=== PATIENT | male | born 1945 | race Caucasian/White ===

== ENCOUNTER 2016-11-03 19:43 | Emergency (ER) | payer MEDICARE, BC ==
[~2016-11-03] VITALS: Ht 190.5 cm; Wt 103.6 kg
[~2016-11-03 19:43] MED LIST: ADVIL200 MG PO; ALPRAZOLAM0.25 MG PO; ARTHROTEC 775 MG/TAB PO; ASPIRIN E.C. 8181 MG PO; FISH OIL1 IU PO; FLUTICASON0.05 MG/Ac NS; HA JOINT PO; HYALURONIC ACID; MULTIPLE VITAMI1 TAB PO; POMEGRANATE; RED RICE YEAST PO; REQUIP 0.5MG0.5 MG PO; VITAMIN C BUFF500 MG PO; ZANTAC PO; [UNRECOGNIZED DRUG - OTHER] PO; [UNRECOGNIZED DRUG - OTHER] PO
[2016-11-03] MEDS ORDERED: SYNTHROID 0.0.025 MG (20:13)
[2016-11-03 20:27] LABS: BASO % 0.2 % (0.0-2.0); EOS # 0.2 (0.0-0.7); EOS % 1.5 % (0-4.0); GRAN # 8.9 (1.4-6.5); GRAN % 83.4 % (42.2-75.2); HEMATOCRIT 42.4 % (42.0-52.0); HEMOGLOBIN 15.2 g/dl (13.5-18.0); LYMPH # 1.1 (1.2-3.4); LYMPH % 9.9 % (20.0-51.0); MEAN CELL VOLUME 93 fl (80.0-100.0); MEAN CORPUSCULAR HEMOGLOBIN 33 pg (27.0-31.0); MEAN CORPUSCULAR HGB CONC 36 g/dl (33.0-37.0); MEAN PLATELET VOLUME 10.4 fl (7.4-10.4); MONO # 0.5 (0.1-0.6); MONO % 4.7 % (1.7-9.3); PLATELET COUNT 159 K/mm3 (130-400); RED BLOOD COUNT 4.55 M/mm3 (4.20-5.60); REDCELL DISTRIBUTION WIDTH-CV 11.8 % (11.5-14.5); WHITE BLOOD COUNT 10.6 K/mm3 (4.8-10.8)
[2016-11-03 20:29] LABS: PH 7 (5-8); SQUAMOUS EPITHELIAL None Seen /hpf; URINE APPEARANCE Clear; URINE BACTERIA None Seen /hpf; URINE BILIRUBIN Negative (NEGATIVE); URINE BLOOD Negative (NEGATIVE); URINE COLOR Straw; URINE GLUCOSE Negative (NEGATIVE); URINE KETONE Negative (NEGATIVE); URINE RBC 0-2 /hpf; URINE UROBILINOGEN Negative (NEGATIVE); URINE WBC 0-2 /hpf
[2016-11-03 20:38] LABS: ADJUSTED CALCIUM 8.6 mg/dL (8.4-10.2); ALBUMIN 4.8 gm/dL (3.5-5.0); CALCIUM 9.2 mg/dL (8.4-10.2); CREATININE, serum 0.93 mg/dL (0.66-1.25); POTASSIUM 4.2 mmol/L (3.4-5.0); TOTAL PROTEIN 8.2 gm/dL (6.4-8.2)
[2016-11-03] MEDS ORDERED: DOXYCYCLINE 10100 MG PO ×2 (21:21→22:00)
[2016-11-03 21:44] VITALS: BP 147/85; TEMP 102.1
[2016-11-03 21:54] VITALS: PULSE 102
[2016-11-05 11:55] LABS: ROCKY MOUNTAIN SPOT FEVER-ABS <1:16 (<1:16)
[2016-11-09 17:09] LABS: EHRLICHIA CHAFFEENIS IGG <1:64 (()); EHRLICHIA CHAFFEENIS IGM <1:20 (())
== END 2016-11-03 21:55 | disposition home or self-care (01) ==
LOC: COL.ER 19:43
PROVIDERS: Emergency Medicine
DX: S30.860D Insect bite (nonvenomous) of lower back and pelvis, subsequent encounter (principal); R50.9 Fever, unspecified; E03.9 Hypothyroidism, unspecified; K21.9 Gastro-esophageal reflux disease without esophagitis; M19.90 Unspecified osteoarthritis, unspecified site; Z87.891 Personal history of nicotine dependence; Z79.82 Long term (current) use of aspirin; Z98.890 Other specified postprocedural states
CPT/HCPCS: J7030

== ENCOUNTER → 2016-12-29 | Outpatient (REF) ==
[~2016-12-29] MED LIST changes: +DOXYCYCLINE 10100 MG PO; +SYNTHROID 0.0.025 MG
[2016-12-29 11:50] LABS: PSA-TOTAL 2.7 ng/mL (0-4); THYROID STIMULATING HORMONE 2.13 uIU/mL (0.465-4.680)
== END ==
LOC: ZLAB.WCH 10:36
PROVIDERS: Family Medicine
DX: Z01.89 Encounter for other specified special examinations (principal)
CPT/HCPCS: G0103

== ENCOUNTER 2017-02-15 01:23 | Emergency (ER) | payer MEDICARE, BC ==
[~2017-02-15] VITALS: Ht 190.5 cm; Wt 106.4 kg
[2017-02-15 01:25] VITALS: BP 159/82; TEMP 98.1
[2017-02-15 02:27] VITALS: PULSE 67
== END 2017-02-15 02:28 | disposition home or self-care (01) ==
LOC: COL.ER 01:23
DX: M79.2 Neuralgia and neuritis, unspecified (principal); K21.9 Gastro-esophageal reflux disease without esophagitis; F41.9 Anxiety disorder, unspecified; Z79.82 Long term (current) use of aspirin

== ENCOUNTER → 2017-09-14 | Outpatient (CLI) | payer MEDICARE, BC | LOC: COL.PUL 10:30 | DX: R05 Cough (principal); R06.2 Wheezing; Z88.0 Allergy status to penicillin; Z88.2 Allergy status to sulfonamides ==

== ENCOUNTER → 2017-09-28 | Outpatient (CLI) | payer MEDICARE, BC | LOC: COL.PUL 09-22 08:00 | DX: R05 Cough (principal); R06.2 Wheezing; Z88.0 Allergy status to penicillin; Z88.2 Allergy status to sulfonamides ==

== ENCOUNTER → 2018-01-04 | Outpatient (REF) ==
[2018-01-04 15:15] LABS: THYROID STIMULATING HORMONE 3.11 uIU/mL (0.465-4.680)
[2018-01-04 15:56] LABS: PSA-TOTAL 1.87 ng/mL (0-4)
== END ==
LOC: ZLAB.WCH 14:21
PROVIDERS: Nurse Practitioner Family
DX: Z01.89 Encounter for other specified special examinations (principal)
CPT/HCPCS: G0103

== ENCOUNTER → 2018-04-24 | Outpatient (CLI) | payer MEDICARE, BC | LOC: COL.RAD 10:46 | DX: J98.6 Disorders of diaphragm (principal); R05 Cough ==

== ENCOUNTER → 2018-10-04 | Outpatient (CLI) | payer MEDICARE, BC | LOC: COL.CARD 11:14 | DX: R94.31 Abnormal electrocardiogram [ECG] [EKG] (principal); I49.9 Cardiac arrhythmia, unspecified ==

== ENCOUNTER 2019-02-27 17:41 | Inpatient (IN) | payer MEDICARE, BC ==
[~2019-02-27] VITALS: Ht 190.5 cm; Wt 105.9 kg
[~2019-02-27 17:41] MED LIST changes: -ALPRAZOLAM0.25 MG PO; -SYNTHROID 0.0.025 MG; +SYNTHROID0.075 MG/T PO; -VITAMIN C BUFF500 MG PO; +VITAMINC500CH PO; +XANAX 1MG1 MG PO
[2019-02-27 19:24] VITALS: BP 116/87; PULSE 129; TEMP 98.2
[2019-02-27 19:48] LABS: TROPONIN-I 0.031 ng/mL (0.000-0.035)
[2019-02-27] MEDS ORDERED: CLARITIN 1010 MG/TAB PO (20:35)
[2019-02-27] MEDS ORDERED: THEO-DUR 3300 MG/TAB PO (20:36)
[2019-02-27] MEDS ORDERED: TESTOSTERONE BOOSTER PO (20:39)
[2019-02-27] MEDS ORDERED: TRELEGY ELLIPT1 EACH IH (20:40)
[2019-02-27] MEDS ORDERED: VENTOLIN0.09 MG IH (20:41)
[2019-02-28] VITALS (449 sets, daily range): BP systolic 91–142; BP diastolic 60–98; PULSE 62–111; TEMP 97.7–98.3; O2SAT 79–100
--- NOTE | 2019-02-28 00:15 | NUR ---
Marge, security monitor, notified this RN of patient have more frequent pauses in heart rate. Patient is alert upon awakening, cardizem gtt is shut off at this time.
[2019-02-28 06:01] LABS: BASO % 0.4 % (0.0-2.0); EOS # 0.5 (0.0-0.7); GRAN # 3.3 (1.4-6.5); GRAN % 49.2 % (42.2-75.2); HEMATOCRIT 41.1 % (42.0-52.0); HEMOGLOBIN 14.2 g/dl (13.5-18.0); LYMPH # 2.4 (1.2-3.4); LYMPH % 35.3 % (20.0-51.0); MEAN CELL VOLUME 96 fl (80.0-100.0); MEAN CORPUSCULAR HEMOGLOBIN 33 pg (27.0-31.0); MEAN CORPUSCULAR HGB CONC 35 g/dl (33.0-37.0); MEAN PLATELET VOLUME 10.7 fl (7.4-10.4); MONO # 0.5 (0.1-0.6); PLATELET COUNT 166 K/mm3 (130-400)
[2019-02-28 06:18] LABS: ALBUMIN 3.4 gm/dL (3.5-5.0); BILIRUBIN,TOTAL 0.5 mg/dL (0.0-1.0); CREATININE, serum 1.07 (0.66-1.25); POTASSIUM 3.9 mmol/L (3.4-5.0)
--- NOTE | 2019-02-28 06:19 | NUR ---
Dr. Munguia rounding on patient at this time. Stated to go ahead and give him breakfast and will see how he is doing this afternoon. Putting in order for heart healty diet.
[2019-02-28 06:27] LABS: TROPONIN-I 0.019 ng/mL (0.000-0.035)
--- NOTE | 2019-02-28 07:00 | NUR ---
RECEIVED REPORT FROM LEAH BROWNE. PT SITTING UP IN BED REQUESTING A MENU TO ORDER SOME BREAKFAST. PT INFORMED THAT HE CAN HAVE BREAKFAST BUT TO HOLD OFF ON LUNCH PER THE POSSIBILITY OF CARDIOVERSION THIS AFTERNOON, PT VERBALIZED UNDERSTANDING. CALL LIGHT WITHIN REACH. CARDIZEM GTT AT 5MG/HR.
--- NOTE | 2019-02-28 08:35 | NUR ---
US TECH AT BEDSIDE TO PERFORM ECHO. PT COOPERATIVE WITH CARE.
--- NOTE | 2019-02-28 10:30 | NUR ---
DR GUPTA AT BEDSIDE FOR ASSESSMENT. DISCUSSED POC WITH DR GUPTA ABOUT POSSIBLE ROSAURA CARDIOVERSION THIS AFTERNOON. NO NEW ORDERS. AWAITING FO RCARDIOLOGY DECISION ABOUT POC AT THIS TIME.
--- NOTE | 2019-02-28 12:06 | NUR ---
First visit from the internet marketer. No needs right now.
--- NOTE | 2019-02-28 14:08 | NUR ---
SPOKE WITH DR LAMBERT ABOUT PT'S HR AND STATUS, ORDERS FOR CARDIOVERSION TOMRROW MORNING AT 0730. AND PT INFORMED ABOUT POC AND PT CAN EAT AT THIS TIME UP UNTIL MIDNIGHT TONIGHT, BOTH VERBALIZED UNDERSTANDING.
--- NOTE | 2019-02-28 14:10 | NUR ---
SPOKE WITH [facility] ABOUT DR LAMBERT REQUEST FOR ROSAURA CARDIOVERSION AT 0730 TOMORROW.
--- NOTE | 2019-02-28 14:25 | NUR ---
SPOKE WITH ANESTHESIA, CAN DO ABOUT 0800 TOMORROW MORNING FOR CARDIOVERSION. WILL NOTIFY [facility] AND [facility].
--- NOTE | 2019-02-28 14:52 | NUR ---
SPOKE WITH DR LAMBERT ABOUT SCHEDULING CONFLICTS FOR CARDIOVERSION. DR LAMBERT STATES TO GET ANESTHESIA FOR 0800 TOMORROW MORNING AND HE WILL HANDLE THE US PART. PT NOTIFIED.
--- NOTE | 2019-02-28 17:00 | NUR ---
EDUCATED PT AND ON HEART HEALTHY DIET AND LIMITING SALT INTAKE. BOTH VERBALIZED UNDERSTANDING.
[2019-03-01] VITALS (211 sets, daily range): BP systolic 109–126; BP diastolic 86–117; PULSE 58–130; TEMP 97.7–98.4; O2SAT 90–100
[2019-03-01 06:07] LABS: BASO % 0.4 % (0.0-2.0); EOS # 0.6 (0.0-0.7); EOS % 8.1 % (0-4.0); GRAN # 3.9 (1.4-6.5); GRAN % 56.6 % (42.2-75.2); HEMOGLOBIN 15.5 g/dl (13.5-18.0); LYMPH % 29.3 % (20.0-51.0); MEAN CELL VOLUME 95 fl (80.0-100.0); MEAN CORPUSCULAR HEMOGLOBIN 33 pg (27.0-31.0); MEAN CORPUSCULAR HGB CONC 34 g/dl (33.0-37.0); MEAN PLATELET VOLUME 11.1 fl (7.4-10.4); MONO # 0.4 (0.1-0.6); MONO % 5.5 % (1.7-9.3); PLATELET COUNT 160 K/mm3 (130-400); RED BLOOD COUNT 4.73 M/mm3 (4.20-5.60); REDCELL DISTRIBUTION WIDTH-CV 12.8 % (11.5-14.5)
[2019-03-01 06:17] LABS: CALCIUM 8.2 mg/dL (8.4-10.2); CREATININE, serum 1.02 (0.66-1.25)
--- NOTE | 2019-03-01 07:06 | NUR ---
Report recieved from LEAH Lindsey. Patient denies needs at this time 2L NC O2 in place. Care assumed.
--- NOTE | 2019-03-01 09:45 | NUR ---
Dr. Danielson rounds at this time. Orders as entered CPOE. Plan to DC home on O2. technical services coordinator to set up home O2.
--- NOTE | 2019-03-01 11:00 | NUR ---
Cardizem gtt discontinued per JESUS Munguia.
--- NOTE | 2019-03-01 11:13 | NUR ---
ROSAURA cardioversion completed between 1100 and 1113. Anesthesia attends and provides sedation, Dr. Munguia supervises, LEAH Nieves for ROSAURA. This RN and Sumaya, student RN manage electrical cardioversion per VORB by Dr. Munguia. Patient tolerates procedure without complication. Care ongoing.
--- NOTE | 2019-03-01 13:29 | NUR ---
Dr. Danielson rounds again at this time. POC discussed to include patient discharge home. Care ongoing.
[2019-03-01] MEDS ORDERED: MULTAQ400 MG PO (13:36)
[2019-03-01] MEDS ORDERED: ELIQUIS 5MG PO (13:37)
--- NOTE | 2019-03-01 14:13 | NUR ---
Patient and provided DC education. Verbalize understanding. INT IV discontinued. Patient dresses in own clothes.
--- NOTE | 2019-03-02 07:19 | NUR ---
Report given to LEAH Fernandez
== END 2019-03-01 14:30 | disposition home or self-care (01) | DRG 309 ==
LOC: MEDICAL 17:41 → ICU 17:41 → MEDICAL 17:41 → ICU 17:41 → MEDICAL 17:42 → ICU 18:17 → MEDICAL 18:17 → ICU 18:17 → MEDICAL 02-28 08:19 → ICU 02-28 08:19
PROVIDERS: Nurse Practitioner Family; Physician Assistant; ADMIT Hospitalist
PROC: 5A2204Z Restoration of Cardiac Rhythm, Single (ICD-10-PCS; principal; 2019-03-01)
DX: I48.91 Unspecified atrial fibrillation (principal); N17.9 Acute kidney failure, unspecified; I48.92 Unspecified atrial flutter; I95.9 Hypotension, unspecified; R07.9 Chest pain, unspecified; N18.9 Chronic kidney disease, unspecified; J44.9 Chronic obstructive pulmonary disease, unspecified; K21.9 Gastro-esophageal reflux disease without esophagitis; E03.9 Hypothyroidism, unspecified; F41.9 Anxiety disorder, unspecified
CPT/HCPCS: OP; 99223-AI; 99232-AI; 99239; J1650; J2704; J7030

== ENCOUNTER 2019-03-30 05:25 | Day surgery (SDC) | payer MEDICARE, BC ==
[~2019-03-30] VITALS: Ht 190.5 cm; Wt 104.2 kg
[~2019-03-30 05:25] MED LIST changes: +CLARITIN 1010 MG/TAB PO; +ELIQUIS 5MG PO; +MULTAQ400 MG PO; +TESTOSTERONE BOOSTER PO; +THEO-DUR 3300 MG/TAB PO; +TRELEGY ELLIPT1 EACH IH; +VENTOLIN0.09 MG IH
[2019-03-30 06:12] VITALS: BP 134/64; PULSE 54; TEMP 97.3
[2019-03-30] MEDS ORDERED: ELIQUIS 5MG PO (06:19)
[2019-03-30] MEDS ORDERED: MULTAQ400 MG PO (06:21)
[2019-03-30] MEDS ORDERED: ALLEGRA ALLERGY60 MG PO (06:27)
[2019-03-30 09:30] VITALS: BP 158/73; PULSE 56; TEMP 97.1
--- NOTE | 2019-03-30 09:30 | NUR ---
TO RM 7 PER CART FROM PACU. ALERT ORIENTED X3, TALKING TO STAFF AND . DENIES PAIN OR DISCOMFORT DENIES NAUSEA CASTREJON SET OVER INCISION SITES CLEAN DRY INTACT. RECEIVED WATER
[2019-03-30 09:45] VITALS: BP 140/79; PULSE 53
--- NOTE | 2019-03-30 09:45 | NUR ---
RECEIVED MUFFIN/BUTTER AND 2ND CUP WATER.
[2019-03-30] MEDS ORDERED: NORCO 325 MG-51 TAB PO (09:48)
--- NOTE | 2019-03-30 09:51 | NUR ---
Initial visit; Patient and his thanked Program Trainer for looking in on [place] and offering God's blessings for a successful surgical procedure.
[2019-03-30 10:00] VITALS: BP 138/68; PULSE 58
--- NOTE | 2019-03-30 10:00 | NUR ---
ATE 100% MUFFIN, C/O MUFFIN BEING STICKY. DRANK 2ND CUP WATER.
[2019-03-30 10:13] VITALS: BP 135/75; PULSE 59
--- NOTE | 2019-03-30 10:18 | NUR ---
AMBULATED TO BATHROOM AND UNABLE TO VOID AT THIS TIME. RECEIVED 3RD CUP OF WATER.
--- NOTE | 2019-03-30 11:10 | NUR ---
BACK TO BATHROOM AND STILL UNABLE TO VOID. SCANNED BLADDER WITH [address] GAO OFFICE CALLED WITH THE UPDATE. ORDER TO STRAIGHT CATH PATIENT AND DISCHARGE HOME.
--- NOTE | 2019-03-30 11:30 | NUR ---
STRAIGHT CATHED PATIENT PER STERILE TECHNIQUE. DRAINED OUT 700CC CLEAR LIGHT YELLOW URINE. PATIENT INFORMED IF HE IS UNABLE TO VOID BY MORNING OR FEELS LIKE HE HAS TO PEE BUT CANT HE NEEDS TO GO TO THE [facility]. PATIENT VERBALIZED UNDERSTANDING.
--- NOTE | 2019-03-30 12:00 | NUR ---
RECEIVED DISCHARGE INSTRUCTIONS AND VERBALIZED UNDERSTANDING. DISCONTINUED IV AND INT- CATHETER INTACT.
--- NOTE | 2019-03-30 12:15 | NUR ---
DISCHARGED PER WC BY NURSING STAFF TO PRIVATE CAR IN CARE OF -
== END 2019-03-30 12:20 ==
LOC: SDCO 05:25
DX: K80.10 Calculus of gallbladder with chronic cholecystitis without obstruction (principal); I48.91 Unspecified atrial fibrillation; Z79.01 Long term (current) use of anticoagulants; J44.9 Chronic obstructive pulmonary disease, unspecified; G47.33 Obstructive sleep apnea (adult) (pediatric); K21.9 Gastro-esophageal reflux disease without esophagitis; Z87.891 Personal history of nicotine dependence; F41.9 Anxiety disorder, unspecified; M19.90 Unspecified osteoarthritis, unspecified site; N40.0 Benign prostatic hyperplasia without lower urinary tract symptoms; E07.9 Disorder of thyroid, unspecified; Z98.52 Vasectomy status; Z96.653 Presence of artificial knee joint, bilateral; Z88.0 Allergy status to penicillin; Z88.2 Allergy status to sulfonamides; Z88.8 Allergy status to other drugs, medicaments and biological substances; Z79.899 Other long term (current) drug therapy
CPT/HCPCS: J0690; J1100; J1885; J2405; J2704; J2710; J3010; J7120

== ENCOUNTER → 2020-06-03 | Outpatient (REF) ==
[~2020-06-03] MED LIST changes: +ALLEGRA ALLERGY60 MG PO; +DECADRON 4MG TAB4 MG PO; +GALZIN50 MG PO; +MOTRIN 600600 MG/TAB PO; +NORCO 325 MG-51 TAB PO; +PROTONIX 40MG T40 MG PO; +VITAMIN D31000 I1 PO
== END ==
LOC: ZLAB.WCH 15:55
DX: Z01.89 Encounter for other specified special examinations (principal)

== ENCOUNTER 2020-06-05 11:26 | Outpatient (CLI) | payer MEDICARE, BC ==
[~2020-06-05] VITALS: Ht 190.5 cm; Wt 100.0 kg
[~2020-06-05 11:26] MED LIST changes: -DECADRON 4MG TAB4 MG PO; -GALZIN50 MG PO; -MOTRIN 600600 MG/TAB PO; -PROTONIX 40MG T40 MG PO; -VITAMIN D31000 I1 PO
[2020-06-05] MEDS ORDERED: MOTRIN 600600 MG/TAB PO (11:51)
[2020-06-05] MEDS ORDERED: ASPIRIN E.C. 8181 MG PO (11:51)
[2020-06-05] MEDS ORDERED: VITAMIN D31000 I1 PO (11:53)
[2020-06-05] MEDS ORDERED: PROTONIX 40MG T40 MG PO (11:54)
[2020-06-05] MEDS ORDERED: GALZIN50 MG PO (11:54)
[2020-06-05] MEDS ORDERED: DECADRON 4MG TAB4 MG PO (11:54)
[2020-06-05 12:00] VITALS: BP 130/71; PULSE 58; TEMP 97.3
[2020-06-05 12:30] VITALS: BP 131/75; PULSE 56
[2020-06-05 13:00] VITALS: BP 148/70; PULSE 58; TEMP 97.2
[2020-06-05 13:30] VITALS: BP 132/94; PULSE 58
[2020-06-05 14:00] VITALS: BP 150/87; PULSE 54; TEMP 98
--- NOTE | 2020-06-05 14:20 | NUR ---
Pt tolerates BAM infusion without issue. INT DC'd with catheter intact and dressing intact. He exits dept under own power, wrapped in bath blanket per protocol.
== END 2020-06-05 14:20 | disposition home or self-care (01) ==
LOC: EUO 11:26
DX: U07.1 COVID-19 (principal)
CPT/HCPCS: J7050